=== PATIENT | male | born 1975 | race Caucasian/White ===

== ENCOUNTER 2023-07-28 00:46 | Emergency (ER) | payer OTHER ==
[2023-07-28 00:57] VITALS: TEMP 98.2; BMI 28.3
[2023-07-28] MEDS ORDERED: MECLIZINE HCL 25 MG TABLET (FP) PO ONE (01:32)
[2023-07-28] MEDS ORDERED: SODIUM CHLORIDE 0.9% 500 ML INFUS.BAG IV ONE (01:32)
[2023-07-28] MEDS ORDERED: ACETAMINOPHEN 1000 MG/100 ML BAG IVPB ONE (01:32)
[2023-07-28] MEDS ORDERED: ACETAMINOPHEN INJECTION 100 ML IVPB ONE (02:02)
[2023-07-28] MEDS ORDERED: MECLIZINE HCL 25 MG TABLET (FP) ONE (02:22)
[2023-07-28 02:26] LABS: BASO % 0.4 % (0-2.0); EOS % 1.7 % (0-4.5); HEMATOCRIT 44.6 % (35.4-49); HEMOGLOBIN 15.3 GM/dL (11.7-16.9); LYMPH % 27.1 % (8-40); MCHC 34.2 g/dl (32.0-35.9); MEAN CELL VOLUME 90.6 fl (80-96); MEAN PLT VOLUME 7.9 fl (7.5-11.1); NEUT % 62.8 % (42.8-82.8); PLATELET COUNT 256 10^3/uL (134-434); RBC 4.92 M/mm3 (4.00-5.60); RDW 13.7 % (11.9-15.9); WHITE BLOOD COUNT 8.9 K/mm3 (4.0-10.0)
[2023-07-28 02:44] LABS: POTASSIUM 3.7 mmol/L (3.5-5.1)
[2023-07-28 02:46] LABS: ALBUMIN 3.7 g/dl (3.4-5.0); BLOOD UREA NITROGEN 15.8 mg/dL (7-18); CALCIUM 8.1 mg/dL (8.5-10.1)
[2023-07-28 02:51] LABS: BILIRUBIN,TOTAL 0.3 mg/dL (0.2-1); TOT PROT 7.2 g/dl (6.4-8.2)
[2023-07-28 04:34] VITALS: BP 118/77; PULSE 102; RESP 18
== END 2023-07-28 04:53 | disposition home or self-care (01) ==
LOC: JER 00:46
PROC: 3E033NZ Introduction of Analgesics, Hypnotics, Sedatives into Peripheral Vein, Percutaneous Approach (ICD-10-PCS; principal; 2023-07-28)
DX: R42 Dizziness and giddiness (principal); R10.13 Epigastric pain
CPT/HCPCS: 36415; 70450-TC; 80053; 80185; 83690; 84484; 85025; 93005; 93010; 99285-25

== ENCOUNTER 2024-02-26 06:38 | Emergency (ER) | payer OTHER ==
[2024-02-26 06:43] VITALS: BMI 28.3
[2024-02-26] MEDS: SODIUM CHLORIDE 0.9% 500 ML INFUS.BAG IV ONE (08:10)
[2024-02-26 08:39] LABS: BASO % 0.5 % (0-2.0); EOS % 1.1 % (0-4.5); HEMATOCRIT 46.6 % (35.4-49); HEMOGLOBIN 16.3 GM/dL (11.7-16.9); LYMPH % 25.8 % (8-40); MCH 31.7 pg (25.7-33.7); MCHC 34.9 g/dl (32.0-35.9); MEAN CELL VOLUME 90.7 fl (80-96); MEAN PLT VOLUME 8.1 fl (7.5-11.1); MONO % 10.3 % (3.8-10.2); NEUT % 62.3 % (42.8-82.8); PLATELET COUNT 267 10^3/uL (134-434); RBC 5.14 M/mm3 (4.00-5.60); RDW 13.2 % (11.9-15.9); WHITE BLOOD COUNT 6.9 K/mm3 (4.0-10.0)
[2024-02-26 08:56] LABS: CALCIUM 9.7 mg/dL (8.5-10.1)
[2024-02-26 08:57] LABS: ALBUMIN 4.2 g/dl (3.4-5.0); BLOOD UREA NITROGEN 7.3 mg/dL (7-18); MAGNESIUM 2.1 mg/dL (1.8-2.4)
[2024-02-26 09:01] LABS: TOT PROT 8.4 g/dl (6.4-8.2)
[2024-02-26 09:02] LABS: BILIRUBIN,TOTAL 0.6 mg/dL (0.2-1)
[2024-02-26 09:37] VITALS: BP 142/87; PULSE 100; RESP 17; TEMP 98.2
[2024-02-26] MEDS ORDERED: LOPERAMIDE HCL 2 MG CAPSULE ONE (09:38)
[2024-02-26] MEDS: LOPERAMIDE HCL 2 MG CAPSULE PO ONE (09:39)
== END 2024-02-26 10:13 | disposition home or self-care (01) ==
LOC: JER 06:38
DX: R19.7 Diarrhea, unspecified (principal); E86.0 Dehydration; Z20.822 Contact with and (suspected) exposure to COVID-19
CPT/HCPCS: 0241U-QW; 36415; 80053; 82962; 83735; 85025; 93005; 93010; 99284-25

== ENCOUNTER 2024-03-01 14:01 | Emergency (ER) | payer OTHER ==
[2024-03-01 14:08] VITALS: BP 138/86; PULSE 90; RESP 18; TEMP 98; BMI 28.6
== END 2024-03-01 15:33 | disposition home or self-care (01) ==
LOC: JERFT 14:01
DX: K64.4 Residual hemorrhoidal skin tags (principal); K62.89 Other specified diseases of anus and rectum
CPT/HCPCS: 99283-25

== ENCOUNTER 2024-03-04 20:24 | Emergency (ER) | payer OTHER ==
[2024-03-04 20:30] VITALS: BP 134/86; PULSE 117; RESP 18; TEMP 97.8; BMI 28.6
[2024-03-04 20:48] LABS: PH,URINE 5.5 (5.0-8.0); URINE APPEARANCE CLEAR; URINE BILIRUBIN NEGATIVE (NEGATIVE); URINE COLOR YELLOW; URINE GLUCOSE (UA) NEGATIVE (NEGATIVE); URINE KETONE TRACE (NEGATIVE); URINE LEUK ESTERASE NEGATIVE (NEGATIVE); URINE NITRITE NEGATIVE (NEGATIVE); URINE PROTEIN NEGATIVE (NEGATIVE)
== END 2024-03-04 22:21 | disposition home or self-care (01) ==
LOC: JER 20:24
DX: R35.0 Frequency of micturition (principal); R30.0 Dysuria; L29.3 Anogenital pruritus, unspecified
CPT/HCPCS: 81003; 87086; 99283-25

== ENCOUNTER 2024-03-30 14:01 | Emergency (ER) | payer OTHER ==
[2024-03-30 14:10] VITALS: BP 117/81; PULSE 97; RESP 20; TEMP 97.6; BMI 26.8
[2024-03-30 17:11] LABS: HIV INTERPRETATION NEGATIVE (NEGATIVE)
== END 2024-03-30 15:44 | disposition home or self-care (01) ==
LOC: JERFT 14:01
DX: R21 Rash and other nonspecific skin eruption (principal)
CPT/HCPCS: 36415; 86803; 87389; 99283-25